=== PATIENT | male | born 1950 | race Caucasian/White ===

== ENCOUNTER 2018-05-24 10:37 | Inpatient (IN) | payer OTHER ==
[~2018-05-24] VITALS: Ht 177.8 cm; Wt 108.9 kg
[2018-05-24 13:04] LABS: ABSOLUTE BASOPHIL COUNT 0 /CUMM (0.0-0.2); ABSOLUTE EOSINOPHIL COUNT 0.4 /CUMM (0.0-0.7); ABSOLUTE GRANULOCYTE CT 10.2 /CUMM (1.4-6.5); ABSOLUTE LYMPH COUNT 1.3 /CUMM (1.2-3.4); BASOPHIL % 0.3 % (0.0-2.0); GRANULOCYTE % 79.1 % (42.2-75.2); HEMATOCRIT 40.5 % (42-52); MEAN CORPUSCULAR HGB 29.4 PG (27.0-31.0); MEAN CORPUSCULAR HGB CONC 33.9 G/DL (33.0-37.0); MEAN CORPUSCULAR VOLUME 86.7 FL (80.0-94.0); PLATELET COUNT 331 /CUMM (130-400); RED BLOOD CELL CT 4.68 /CUMM (4.70-6.10); WHITE BLOOD CELL COUNT 12.9 /CUMM (4.8-10.8)
--- NOTE | 2018-05-24 15:47 | ED SKIN/ALLERGY COMPLAINT ---
History of Present Illness General Chief Complaint: General Adult Stated Complaint: SIB DR FOR ?LAC TO BACK OF HEAD Source: patient Exam Limitations: no limitations Vital Signs & Intake/Output Vital Signs & Intake/Output Vital Signs Date Time Temp Pulse Resp B/P B/P Pulse O2 O2 Flow FiO2 Mean Ox Delivery Rate 05/24 1540 98.4 84 18 112/70 05/24 1048 98.6 74 18 137/74 98 Room Air Allergies Coded Allergies: levofloxacin (Severe, RASH 05/24/18) ciprofloxacin (From CIPRO HC) (HIVES, RASH 05/24/18) hydrocortisone (From CIPRO HC) (HIVES, RASH 05/24/18) Reconcile Medications Amlodipine Besylate 10 MG TABLET 1 TAB PO QAM BP (Reported) Cholecalciferol (Vitamin D3) (Vitamin D) 2,000 UNIT CAPSULE 1 CAP PO QAM DM ( Reported) Erythromycin Ethylsuccinate (E.e.s. 400) 400 MG TABLET 1 TAB PO EOD ABX ( Reported) Fenofibrate Nanocrystallized (Fenofibrate) 145 MG TABLET 1 TAB PO QHS CHOLESTEROL/TRIGLYCERIDES (Reported) [FOLNATE PLUS] 1 TAB PO QAM SUPPLEMENT (Reported) Furosemide (Lasix) 20 MG TABLET 1 TAB PO QAM DIURETIC (Reported) Gabapentin 300 MG CAPSULE 1 CAP PO TID UNKNOWN (Reported) Lactobacillus Acidophilus (Probiotic) (Unknown Strength) CAPSULE (Unknown Dose ) PO DAILY PROBIOTIC (Reported) Lansoprazole 30 MG CAPSULE.DR 1 CAP PO QAM GI (Reported) Levothyroxine Sodium 150 MCG TABLET 1 TAB PO DAILY AC THYROID (Reported) Linagliptin (Tradjenta) 5 MG TABLET 1 TAB PO QHS DM (Reported) Lisinopril 40 MG TABLET 1 TAB PO DAILY BP (Reported) Loratadine (Claritin) 10 MG TABLET 1 TAB PO QAM ALLERGIES (Reported) Metformin HCl (Metformin HCl ER) 500 MG TAB.ER.24 1 TAB PO QAM DM (Reported) Metformin HCl (Metformin HCl ER) 500 MG TAB.ER.24H 2 TAB PO QPM DM (Reported) [place]-3S/Dha/Epa/Fish Oil (Fish Oil 1,200 MG Softgel) 360-1,200MG CAPSULE 2 CAP PO QPM SUPPLEMENT (Reported) Paroxetine HCl (Paxil) 30 MG TABLET 1 TAB PO QHS MENTAL HEALTH (Reported) Pravastatin Sodium 40 MG TABLET 1 TAB PO QPM CHOLESTEROL (Reported) Rivaroxaban (Xarelto) 10 MG TABLET 1 TAB PO QPM BLOOD THINNER (Reported) Sulfamethoxazole/Trimethoprim (Bactrim Ds Tablet) 800 MG-160 MG TABLET 1 TAB PO BID ABX (Reported) Triage Note: 68 YO MALE TO TRIAGE FOR EVAL OF ?INFECTION TO BACK OF HEAD. STARTED WITH LUMP ON HIS HEAD ON May, WAS SEEN AT [facility] AND OUT ON AMOXICILLAN, PER IT DIDNT GET ANY BETTER, SAW PCP ON SUNDAY AND PERSCRIBED BACTRIM AND IS CURRENTLY TAKING IT NOW. NOTED WITH OOZING TO SITE ON BACK OF NECK WITH LARGE LUMP NOTED. Triage Nurses Notes Reviewed? yes Onset: Abrupt Duration: week(s): Timing: recent history Severity: moderate, severe Location: scalp HPI: 60-year-old male comes into the emergency room with swelling and pain to his scalp. Its been there for weeks getting progressively worse. Denies any fever chills vomiting. Some drainage. Comes in for further evaluation Past History Travel History Traveled to [place] past 21 day No Medical History Any Pertinent Medical History? see below for history Neurological: CVA Cardiovascular: AFIB, hypertension, hyperlipidemia, BRADACARDIA Musculoskeletal: TANIA IN HIS NECK Endocrine: diabetes, AML Blood Disorders: BLOOD CLOTS IN LEGS Surgical History Surgical History: non-contributory Psychosocial History What is your primary language Maltese Tobacco Use: Never used Family History Hx Contributory? No Review of Systems Review of Systems Constitutional: Reports: no symptoms. EENTM: Reports: no symptoms. Respiratory: Reports: no symptoms. Cardiovascular: Reports: no symptoms. GI: Reports: no symptoms. Genitourinary: Reports: no symptoms. Musculoskeletal: Reports: no symptoms. Skin: Reports: see HPI. Neurological/Psychological: Reports: no symptoms. Hematologic/Endocrine: Reports: no symptoms. Immunologic/Allergic: Reports: no symptoms. All Other Systems: Reviewed and Negative Physical Exam Physical Exam General Appearance: no apparent distress, alert, mild distress Head: swelling and induration to posterior scalp, multiple open wounds with purulent drainage, erythema, warmth, Eyes: Bilateral: normal appearance. Ears, Nose, Throat: normal ENT inspection, hearing grossly normal Neck: normal inspection Respiratory: no respiratory distress Gastrointestinal: non-tender Back: normal inspection Extremities: normal inspection, normal range of motion, no edema Neurologic/Psych: awake, alert, oriented x 3, normal mood/affect Skin: see above Progress Differential Diagnosis: abscess/cellulitis, allergic reaction, sepsis Plan of Care: Orders Procedure Date/time Status Consistent Carbohydrate 1 05/25 B Active HEAD & NECK CULTURE 05/24 1616 Active CBC WITHOUT DIFFERENTIAL 05/24 1234 Complete BASIC METABOLIC PANEL 05/24 1234 Complete Laboratory Tests 05/24/18 1252: Anion Gap 9, Estimated GFR 50 L, BUN/Creatinine Ratio 17.1, Glucose 153 H, Calcium 9.9, CBC w Diff NO MAN DIFF REQ, RBC 4.68 L, MCV 86.7, MCH 29.4, MCHC 33.9, RDW 15.0 H, MPV 9.0, Gran % 79.1 H, Lymphocytes % 10.0 L, Monocytes % 7.6, Eosinophils % 3.0, Basophils % 0.3, Absolute Granulocytes 10.2 H, Absolute Lymphocytes 1.3, Absolute Monocytes 1.0 H, Absolute Eosinophils 0.4, Absolute Basophils 0 Microbiology 05/24 1640 HEAD/NECK: Head/Neck Culture - RECD 05/24 1640 HEAD/NECK: Gram Stain - RECD Departure Departure Disposition: HOME OR SELF CARE Condition: Stable Clinical Impression Primary Impression: Abscess or cellulitis of scalp Referrals: Dallas Bishop MD (PCP/Family) Departure Forms: Customer Survey General Discharge Information Admission Note Spoke With: George Gramajo MD Documentation of Exam: Documentation of any treatments & extenuating circumstances including Concerns Regarding Discharge (functional status, medication knowledge or non-compliance, living conditions, etc.) that warrant an admission rather than observation: Wound care. IV antibiotics. Surgery consultation. Diabetic. Medically not safe for discharge.
--- NOTE | 2018-05-24 17:12 | PN- Student ---
Subjective Subjective: Consult note Pre-op Diagnosis: complicated scalp abscess Planned procedure and time: incision and drainage, 05/24/18 CXR: not indicated EKG: not indicated Blood: not indicated Orders: admit patient to floor; IV vancomycin 500 mL (2.2g) initial (trough 15- 20 ug/mL); IV NS 100mL/hr Anesthesia: local, ASA 2 Consent: signed and on chart
--- NOTE | 2018-05-24 17:23 | PN- Student ---
Daphne Farley 05/24/18 1717: Subjective Subjective: Brief op note: Pre-op diagnosis: complicated scalp abscess with drainage Post-op diagnosis: complicated scalp abscess with drainage Procedure: incision and drainage Surgeon: Hang Floyd MD Assistants: Daphne Farley, Student Findings: Fragile, indurated skin overlying pockets of pus in a complicated abscess. Anesthesia: local Fluids: none EBL: 30 mL Urine output: none Drains: none Specimens: pus sent for culture Complications: pain from incision Condition: stable, admitted to floor
[2018-05-24] MEDS ORDERED: BACTRIM DS TAB1 EACH PO (17:49)
[2018-05-24] MEDS ORDERED: PROBIOTIC1 EACH PO (17:50)
[2018-05-24] MEDS ORDERED: E.E.S. 400400 MG PO (18:08)
[2018-05-24] MEDS ORDERED: FISH OIL 1,2001 EAC2 PO (18:10)
[2018-05-24] MEDS ORDERED: GABAPENTIN300 M2 PO (18:11)
[2018-05-24] MEDS ORDERED: CLARITIN10 M1 PO (18:11)
[2018-05-24] MEDS ORDERED: LISINOPRIL40 M1 PO (18:12)
[2018-05-24] MEDS ORDERED: FENOFIBRATE145 M1 PO (18:12)
[2018-05-24] MEDS ORDERED: LANSOPRAZOLE30 M2 PO (18:13)
[2018-05-24] MEDS ORDERED: XARELTO10 M1 PO (18:13)
[2018-05-24] MEDS ORDERED: LEVOTHYROXINE150 MCG PO (18:13)
[2018-05-24] MEDS ORDERED: PRAVASTATIN SOD40 M2 PO (18:14)
[2018-05-24] MEDS ORDERED: LASIX20 M1 PO (18:14)
[2018-05-24] MEDS ORDERED: AMLODIPINE BESY10 M1 PO (18:15)
[2018-05-24] MEDS ORDERED: PAXIL30 M1 PO (18:16)
[2018-05-24] MEDS ORDERED: [UNRECOGNIZED DRUG - OTHER] PO (18:16)
[2018-05-24] MEDS ORDERED: METFORMIN HCL500 M2 PO (18:17)
[2018-05-24] MEDS ORDERED: VITAMIN D2000 UNIT PO (18:17)
[2018-05-24] MEDS ORDERED: METFORMIN HCL500 M4 PO (18:17)
[2018-05-24] MEDS ORDERED: TRADJENTA5 M1 PO (18:17)
--- NOTE | 2018-05-24 19:18 | History & Physical ---
Andrea Kumari 05/24/181916: General Information and HPI History of Present Illness: 60-year-old M with past medical history HTN, HLD, type 2 diabetes on oral hypoglycemic, sleep apnea, AML , A. fib on Xarelto and CVA presented with with scalp abscess on posterior side of the head for the last 2 weeks. According to the patient started itching and pain in posterior side of head. he had a haircut 2 days before pain in the posterior scalp . Then the patient noticed abcess. She took him to the urgent care facility where he was recommended amoxicillin for 7 days but abscess were persistent. Than he started taking Bactrim for the last 2 days on recommendation of PCP but the patient saw no improvement . Patient referred to emergency department today abscess incision and drainage done. Review of system is negative for fever, chills, chest pain, abdominal pain, diarrhea, constipation, burning micturition, weight loss. Past History Travel History Traveled to [place] past 21 day No Medical History Neurological: CVA Cardiovascular: AFIB, hypertension, hyperlipidemia, BRADACARDIA Musculoskeletal: TANIA IN HIS NECK Endocrine: diabetes, AML Blood Disorders: BLOOD CLOTS IN LEGS Surgical History Surgical History: non-contributory Review of Systems Review of Systems Constitutional: Reports: see HPI. Exam & Diagnostic Data Last 24 Hrs of Vital Signs/I&O Vital Signs Date Time Temp Pulse Resp B/P B/P Pulse O2 O2 Flow FiO2 Mean Ox Delivery Rate 05/24 2205 98.1 73 20 124/68 96 05/24 2105 98.6 88 16 120/78 97 Room Air 05/24 1540 98.4 84 18 112/70 05/24 1048 98.6 74 18 137/74 98 Room Air Intake & Output 05/25 0800 05/25 0000 05/24 1600 Intake Total 100 0 Output Total Balance 100 0 Intake, IV 100 Intake, Oral 0 Number 1 Bowel Movements Patient 240 lb 245 lb Weight Weight Reported by Patient Reported by Patient Measurement Method Physical Exam HEENT Abcess with discharge on posterior side of head. Lymphatic Axillary nl, Cervical nl Cardiovascular Normal S1, Normal S2, Murmur, irregular pulse Lungs Clear to Auscultation, Normal Air Movement Abdomen Normal Bowel Sounds, Soft, No Tenderness Extremities No Clubbing, No Cyanosis, Normal Pulses, Bilateral pedal edema Assessment/Plan Assessment: 60-year-old M with past medical history HTN, HLD, type 2 diabetes on oral hypoglycemic, sleep apnea, AML , A. fib on Xarelto and CVA presented with with scalp abscess on posterior side of the head for the last 2 weeks. At the time of presentation to emergency department vitals and labs are given below. Vitals: Temperature 98.4, pulse rate 84, respiratory rate 18, blood pressure 112/70, oxygen saturation 97% Labs: Patient pertinent labs WBC 12.9, hemoglobin/hematocrit 13.8/40.5, MCV 86.7, platelet 331 Granulocyte 79.1 Sodium 139, potassium 4.5, anion gap 9, bun 24, creatinine 1.4, estimated GFR 50 Urinalysis: Urine pH 5.5, urine leukocyte esterase negative, urine WBC rare, urine RBC 3.5 INR is 2.01 Problems list: * Scalp abcess * Past medical history CVA, hypertension, hyperlipidemia, A. fib, AML, sleep apnea * Plan: Scalp abscess: Patient having leukocytosis and low grade temperature and redness, changed skill coulour and discharge on posterior side of head, all above finding are pertininent with sking abcess. Basic reason for admission is failed out patient antibiotic theraphy. * Admit to general medical floor * Incision and drainage done at emergency department * Will start IV antibiotic vancomycin * Will monitor his blood sugar * Start him on regular insulin * Will follow up on blood culture and abscess drain culture * Change dressing daily * ID recommendation at a.m. if needed * Workup for diabetic control *Medicine will be continued for his other medical condition *Full code *GI DVT prophylaxis As Ranked By This Provider Problem List: 1. Abscess or cellulitis of scalp Core Measures/Misc (05/27) Acute Coronary Syndrome ACS Diagnosis: No Congestive Heart Failure Congestive Heart Failure Diagnosis No Cerebrovascular Accident CVA/TIA Diagnosis: No VTE (View Protocol) VTE Risk Factors Age>40 No Mechanical VTE Prophylaxis d/t Other No VTE Pharm Prophylaxis d/t Other Sepsis (View protocol) If YES complete Sepsis Event Note If YES complete Sepsis Event Note Jaspal TUBBS,Sonja 05/25/18 0248: Core Measures/Misc (05/27) Sepsis (View protocol) Sepsis Present: No If YES complete Sepsis Event Note If YES complete Sepsis Event Note Resident Review Statement Resident Statement: examined this patient, discussed with integrated marketing intern, agreed with integrated marketing intern, discussed with family, reviewed EMR data (avail), discussed with nursing , discussed with case mgmt, reviewed images, amended to note Other Findings: Patient is a 68 yo M with a history of HTN, HLD, NIDDM, sleep apnea, AML, thyroid cancer s/p resection and CVA presents with a posterior scalp abscess for 11 days. The patients noticed the abscess on May 13 and they went to an urgent care where he received amoxicillin x 7 days. When the patient presented for his primary care visit on May 22 the abscess was not improved and the PCP prescribed Bactrim. When the patients noticed the wound becoming purulent she brought him to [facility] ED. The above history is from medical student by his . By the time of my interview patient was alone and not able to given any meaningful history. ED Course Evaluated by surgery and underwent Incision and drainage of the pus. Vitals stable - afebrile, HR 70's, BP 120/70mmHg. Labs did show white count of 12.9, Cr 1.4, BUN 24. Etiology Patient might sustained community-acquired MRSA cellulitis from the haircut, he failed outpatient amoxicillin more suggestive of MRSA. Being diabetic he is prone to have severe infection. He merits IV antibiotics for 1/2 days followed by discharging on Bactrim. Plan Admit to general medicine floor Scalp abscess status post incision and drainage H/o spinal staph infection C5-C5 2004. A hardware placed in 2005 (Titanium tania). * Follow-up culture/Gram stain of pus * Continue IV vancomycin * Likely transition to Bactrim at discharge * Surgery on board - please follow-up recommendations * Pain management - oral/IV Tylenol * If spikes fever/signs of decompensation - constant blood cultures as there is chance of infecting hardware inside. History of hypertension: Continue lisinopril 40 mg History of hyperlipidemia:Continue pravastatin 40 mg, fenofibrate 145 mg daily Lower extremity edema: Continue furosemide 20 g daily Diabetic neuropathy: Continue gabapentin 300 mg 3 times a day NIDDM: Hold oral hypoglycemics, Accu-Cheks and insulin sliding scale, Monitor blood sugars and adjust accordingly. She was on metformin 500 mg a.m., 1000 mg p.m. and Linagliptin 5 mg daily. History of thyroid cancer status post arterectomy: Continue levothyroxine 50 g daily Unclear the reason behind erythromycin 400 mg every other day, needs to conform. DVT prophylaxis SC heparin code status Full code Rox TUBBS,George 05/25/18 0359: General Information and HPI MD Statement: I have seen and personally examined MEIR BELLE and documented this H&P. The patient is a 68 year old M who presented with a patient stated chief complaint of [abscess]. Source of Information: patient, family Exam Limitations: no limitations Allergies/Medications Allergies: Coded Allergies: levofloxacin (Severe, RASH 05/24/18) ciprofloxacin (From CIPRO HC) (HIVES, RASH 05/24/18) hydrocortisone (From CIPRO HC) (HIVES, RASH 05/24/18) Home Med list Acetaminophen 500 MG TABLET 2 TAB PO PRN PAIN (Reported) Amlodipine Besylate 10 MG TABLET 1 TAB PO QAM BP (Reported) Cholecalciferol (Vitamin D3) (Vitamin D) 2,000 UNIT CAPSULE 1 CAP PO QAM DM ( Reported) Erythromycin Ethylsuccinate (E.e.s. 400) 400 MG TABLET 1 TAB PO EOD ABX ( Reported) Fenofibrate Nanocrystallized (Fenofibrate) 145 MG TABLET 1 TAB PO QHS CHOLESTEROL/TRIGLYCERIDES (Reported) [FOLNATE PLUS] 1 TAB PO QAM SUPPLEMENT (Reported) Furosemide (Lasix) 20 MG TABLET 1 TAB PO QAM DIURETIC (Reported) Gabapentin 300 MG CAPSULE 1 CAP PO TID UNKNOWN (Reported) Lactobacillus Acidophilus (Probiotic) (Unknown Strength) CAPSULE (Unknown Dose ) PO DAILY PROBIOTIC (Reported) Lansoprazole 30 MG CAPSULE.DR 1 CAP PO QAM GI (Reported) Levothyroxine Sodium 150 MCG TABLET 1 TAB PO DAILY AC THYROID (Reported) Linagliptin (Tradjenta) 5 MG TABLET 1 TAB PO QHS DM (Reported) Lisinopril 40 MG TABLET 1 TAB PO DAILY BP (Reported) Loratadine (Claritin) 10 MG TABLET 1 TAB PO QAM ALLERGIES (Reported) Metformin HCl (Metformin HCl ER) 500 MG TAB.ER.24 1 TAB PO QAM DM (Reported) Metformin HCl (Metformin HCl ER) 500 MG TAB.ER.24H 2 TAB PO QPM DM (Reported) [place]-3S/Dha/Epa/Fish Oil (Fish Oil 1,200 MG Softgel) 360-1,200MG CAPSULE 2 CAP PO QPM SUPPLEMENT (Reported) Paroxetine HCl (Paxil) 30 MG TABLET 1 TAB PO QHS MENTAL HEALTH (Reported) Pravastatin Sodium 40 MG TABLET 1 TAB PO QPM CHOLESTEROL (Reported) Rivaroxaban (Xarelto) 10 MG TABLET 1 TAB PO QPM BLOOD THINNER (Reported) Past History Medical History Neurological: CVA Cardiovascular: AFIB, hypertension, hyperlipidemia Musculoskeletal: TANIA IN HIS NECK Review of Systems Review of Systems Constitutional: Reports: see HPI. Exam & Diagnostic Data Last 24 Hrs of Vital Signs/I&O Vital Signs Date Time Temp Pulse Resp B/P B/P Pulse O2 O2 Flow FiO2 Mean Ox Delivery Rate 05/24 2205 98.1 73 20 124/68 96 05/24 2105 98.6 88 16 120/78 97 Room Air 05/24 1540 98.4 84 18 112/70 05/24 1048 98.6 74 18 137/74 98 Room Air Intake & Output 05/25 0800 05/25 0000 05/24 1600 Intake Total 100 0 Output Total Balance 100 0 Intake, IV 100 Intake, Oral 0 Number 1 Bowel Movements Patient 240 lb 245 lb Weight Weight Reported by Patient Reported by Patient Measurement Method Physical Exam General Appearance Alert, Oriented X3, Cooperative, No Acute Distress Skin No Rashes, No Breakdown Skin Temp/Moisture Exam: Warm/Dry Sepsis Skin Exam (color): Normal for Ethnicity HEENT Atraumatic, PERRLA, EOMI Neck Supple, No JVD Lymphatic Axillary nl, Cervical nl Cardiovascular Normal S1, Normal S2, Murmur, irregular pulse Lungs Clear to Auscultation, Normal Air Movement Abdomen Normal Bowel Sounds, Soft, No Tenderness Last 24 Hrs of Labs/Virgilio: Laboratory Tests 05/24/18 1252: Anion Gap 9, Estimated GFR 50 L, BUN/Creatinine Ratio 17.1, Glucose 153 H, Calcium 9.9, CBC w Diff NO MAN DIFF REQ, RBC 4.68 L, MCV 86.7, MCH 29.4, MCHC 33.9, RDW 15.0 H, MPV 9.0, Gran % 79.1 H, Lymphocytes % 10.0 L, Monocytes % 7.6, Eosinophils % 3.0, Basophils % 0.3, Absolute Granulocytes 10.2 H, Absolute Lymphocytes 1.3, Absolute Monocytes 1.0 H, Absolute Eosinophils 0.4, Absolute Basophils 0 Microbiology 05/24 1640 HEAD/NECK: Head/Neck Culture - RECD 05/24 1640 HEAD/NECK: Gram Stain - RECD Core Measures/Misc (05/27) Sepsis (View protocol) If YES complete Sepsis Event Note If YES complete Sepsis Event Note Attending MD Review Statement Attending Statement Attending MD Statement: examined this patient, discuss w/resident/PA/BRIDGE SAW OPERATOR, agreed w/resident/PA/BRIDGE SAW OPERATOR, discussed with family, reviewed EMR data (avail), discussed with nursing, discussed with case mgmt, reviewed images, amended to note Attending Assessment/Plan: This patient is a 68-year-old male with a significant past medical history for HTN, HLD, non-insulin type 2 diabetes, sleep apnea, AML, and CVA presents with a posterior scalp abscess for 11 days. The patients noticed the abscess on May 13 and they went to an urgent care where he received amoxicillin x 7 days. When the patient presented for his primary care visit on May 22 the abscess was not improved and the PCP prescribed Bactrim. When the patients noticed the wound becoming purulent she brought him to [facility] ED. The patient states he had been having trouble sleeping the last couple of night due to the discomfort rating it an 8/10. He received a haircut at his [employer] on May 11, two days before the abscess was noticed. While in the emergency department to general surgeon was consulted and performed a I&D. The patients pain and discomfort improved considerably. He is afebrile and his vital signs are stable, he is a mildly elevated white blood cell count 12.9, his BUN and creatinine are mildly elevated, cultures sent and pending and no imaging. The patient will be admitted to the hospital for abscess with failed outpatient therapy will continue IV antibiotics (vancomycin) and further surgical debridement as needed. Full code.
--- NOTE | 2018-05-24 19:38 | Cons- General Surgery ---
General Information and HPI Consulting Request Date of Consult: 05/24/18 Requested By: George Gramajo MD History of Present Illness: PATIENT HAS ONE WEEK OF WORSENING SWELLING AND TENDERNESS POSTERIOR SCALP. NO F/ C/S. NO PRIOR EPISODES. IRRITATED FROM LAYING ON BACK. PATITNE TAKES CPAP AND CONCERN FRICTION MAY BE RELATED TO ONSET Allergies/Medications Allergies: Coded Allergies: levofloxacin (Severe, RASH 05/24/18) ciprofloxacin (From [facility]) (HIVES, RASH 05/24/18) hydrocortisone (From [facility]) (HIVES, RASH 05/24/18) Home Med List: Acetaminophen 500 MG TABLET 2 TAB PO PRN PAIN (Reported) Amlodipine Besylate 10 MG TABLET 1 TAB PO QAM BP (Reported) Cholecalciferol (Vitamin D3) (Vitamin D) 2,000 UNIT CAPSULE 1 CAP PO QAM DM ( Reported) Erythromycin Ethylsuccinate (E.e.s. 400) 400 MG TABLET 1 TAB PO EOD ABX ( Reported) Fenofibrate Nanocrystallized (Fenofibrate) 145 MG TABLET 1 TAB PO QHS CHOLESTEROL/TRIGLYCERIDES (Reported) [FOLNATE PLUS] 1 TAB PO QAM SUPPLEMENT (Reported) Furosemide (Lasix) 20 MG TABLET 1 TAB PO QAM DIURETIC (Reported) Gabapentin 300 MG CAPSULE 1 CAP PO TID UNKNOWN (Reported) Lactobacillus Acidophilus (Probiotic) (Unknown Strength) CAPSULE (Unknown Dose ) PO DAILY PROBIOTIC (Reported) Lansoprazole 30 MG CAPSULE.DR 1 CAP PO QAM GI (Reported) Levothyroxine Sodium 150 MCG TABLET 1 TAB PO DAILY AC THYROID (Reported) Linagliptin (Tradjenta) 5 MG TABLET 1 TAB PO QHS DM (Reported) Lisinopril 40 MG TABLET 1 TAB PO DAILY BP (Reported) Loratadine (Claritin) 10 MG TABLET 1 TAB PO QAM ALLERGIES (Reported) Metformin HCl (Metformin HCl ER) 500 MG TAB.ER.24 1 TAB PO QAM DM (Reported) Metformin HCl (Metformin HCl ER) 500 MG TAB.ER.24H 2 TAB PO QPM DM (Reported) [place]-3S/Dha/Epa/Fish Oil (Fish Oil 1,200 MG Softgel) 360-1,200MG CAPSULE 2 CAP PO QPM SUPPLEMENT (Reported) Paroxetine HCl (Paxil) 30 MG TABLET 1 TAB PO QHS MENTAL HEALTH (Reported) Pravastatin Sodium 40 MG TABLET 1 TAB PO QPM CHOLESTEROL (Reported) Rivaroxaban (Xarelto) 10 MG TABLET 1 TAB PO QPM BLOOD THINNER (Reported) Current Medications: Current Medications Sig/Stephanie Start time Last Medication Dose Route Stop Time Status Admin Acetaminophen 1,000 MG Q6P PRN 05/24 1930 AC IV Acetaminophen 650 MG Q6P PRN 05/24 1915 AC PO Cholecalciferol 2,000 IU DAILY 05/25 0900 AC 05/25 PO 0908 Erythromycin 500 MG Q48 05/25 0900 AC 05/25 PO 05/26 0859 0908 Fenofibrate 145 MG AT BEDTIME 05/24 2215 AC 05/24 PO 2340 Furosemide 20 MG QAM 05/25 0900 AC 05/25 PO 0908 Gabapentin 300 MG TID 05/24 2216 AC 05/25 PO 0909 Insulin Aspart 0 TIDAC 05/25 0800 AC 05/25 SC 0907 Insulin Detemir 6 UNITS BID 05/25 0900 AC 05/25 SC 0910 Lactobacillus 1 CAP DAILY 05/25 0900 AC 05/25 Acidophilus PO 0909 Levothyroxine Sodium 0.15 MG DAILY AC 05/25 0700 AC 05/25 PO 0515 Lidocaine 0 .STK-MED ONE 05/24 1604 DC .ROUTE Lidocaine/Epinephrine 0 .STK-MED ONE 05/24 1604 DC .ROUTE Lisinopril 40 MG DAILY 05/25 0900 AC 05/25 PO 0909 Loratadine 10 MG QAM 05/25 0900 AC 05/25 PO 0908 Omeprazole 40 MG DAILY AC 05/25 0700 AC 05/25 PO 0515 Oxycodone/ 1 TAB ONCE ONE 05/24 1730 DC 05/24 Acetaminophen PO 05/24 1731 1728 Oxycodone/ 0 .STK-MED ONE 05/24 1725 DC Acetaminophen PO Paroxetine HCl 30 MG AT BEDTIME 05/25 2100 AC PO Pravastatin Sodium 40 MG 1700 05/25 1700 AC PO Rivaroxaban 10 MG QPM 05/25 2100 AC PO Sodium Chloride 1,000 ML Q13H 05/24 1930 DC 05/24 IV 05/25 0829 2138 Vancomycin HCl 1,000 MG DAILY 05/25 0900 AC 05/25 Sodium Chloride 250 ML IV 09 Vancomycin HCl 0 .STK-MED ONE 05/24 1645 DC .ROUTE Vancomycin HCl 1,000 MG ONCE ONE 05/24 1630 DC 05/24 Sodium Chloride 250 ML IV 05/24 1729 1710 Past History Medical History Neurological: CVA Cardiovascular: AFIB, hypertension, hyperlipidemia, BRADACARDIA Musculoskeletal: degen joint disease Endocrine: diabetes, AML Blood Disorders: DVT Other Medical Hx: ?MRSA Surgical History Pertinent Surgical History: spinal fusion Review of Systems Review of Systems: NO CP, DYSPNEA. GAIN IMBALANCE. SPEECH IMPEDIMENT FROM STOKE. NO F/C/S. REMAINDER 12 NEG. Exam & Diagnostic Data Vital Signs and I&O Vital Signs Date Time Temp Pulse Resp B/P B/P Pulse O2 O2 Flow FiO2 Mean Ox Delivery Rate 05/24 1540 98.4 84 18 112/70 05/24 1048 98.6 74 18 137/74 98 Room Air Intake & Output 05/24 1600 05/24 0800 05/24 0000 05/23 1600 05/23 0800 05/23 0000 Intake Total 0 Output Total Balance 0 Intake, Oral 0 Patient 245 lb Weight Weight Reported by Patient Measurement Method Physical Exam: GEN; OBESE, NAD. LOOKS AGE. NO DISTRESS \HEENT; ANICTERIC,M PERRL, EOMI HEAD; 10CM ERYTHEMAN AND INDURATION POSTERIOR SCALP. FLUCTUANCE. EXPRESSABLE PURULENCE FROM MULTIPLE SITES. Last 24 Hours of Labs: Laboratory Tests 05/24 1252 Chemistry Sodium (137 - 145 mmol/L) 139 Potassium (3.5 - 5.1 mmol/L) 4.5 Chloride (98 - 107 mmol/L) 102 Carbon Dioxide (22 - 30 mmol/L) 28 Anion Gap (5 - 16) 9 BUN (9 - 20 mg/dL) 24 H Creatinine (0.7 - 1.2 mg/dL) 1.4 H Estimated GFR (>60 ml/min) 50 L BUN/Creatinine Ratio (7 - 25 %) 17.1 Glucose (65 - 99 mg/dL) 153 H Calcium (8.4 - 10.2 mg/dL) 9.9 Hematology CBC w Diff NO MAN DIFF REQ WBC (4.8 - 10.8 /CUMM) 12.9 H RBC (4.70 - 6.10 /CUMM) 4.68 L Hgb (14.0 - 18.0 G/DL) 13.8 L Hct (42 - 52 %) 40.5 L MCV (80.0 - 94.0 FL) 86.7 MCH (27.0 - 31.0 PG) 29.4 MCHC (33.0 - 37.0 G/DL) 33.9 RDW (11.5 - 14.5 %) 15.0 H Plt Count (130 - 400 /CUMM) 331 MPV (7.4 - 10.4 FL) 9.0 Gran % (42.2 - 75.2 %) 79.1 H Lymphocytes % (20.5 - 51.1 %) 10.0 L Monocytes % (1.7 - 9.3 %) 7.6 Eosinophils % (0 - 5 %) 3.0 Basophils % (0.0 - 2.0 %) 0.3 Absolute Granulocytes (1.4 - 6.5 /CUMM) 10.2 H Absolute Lymphocytes (1.2 - 3.4 /CUMM) 1.3 Absolute Monocytes (0.10 - 0.60 /CUMM) 1.0 H Absolute Eosinophils (0.0 - 0.7 /CUMM) 0.4 Absolute Basophils (0.0 - 0.2 /CUMM) 0 Assessment/Plan Assessment/Plan INCOMPLETELY DRAINING ABSCESS OF SCALP. CHARACTERISTICS C/W MRSA (INFILTRATIVE WITHOUT DISCRETE COLLECTION). PLAN FOR DRAINAGE IN ER. CULTURE OBTAINED. Consult Acknowledgment - Thank you for your consult request.
--- NOTE | 2018-05-24 20:15 | PN- Student ---
Subjective Subjective: HPI: A 68 yo M with a history of HTN, HLD, non-insulin type 2 diabetes, sleep apnea, AML, and CVA presents with a posterior scalp abscess for 11 days. The patients noticed the abscess on May 13 and they went to an urgent care where he received amoxicillin x 7 days. When the patient presented for his primary care visit on May 22 the abscess was not improved and the PCP prescribed Bactrim. When the patients noticed the wound becoming purulent she brought him to [facility] ED. The patient states he had been having trouble sleeping the last couple of night due to the discomfort rating it an 8/10. The patient presents in the ED sitting comfortably in his chair accompanied by his eating dinner. He states the pain has improved s/p abscess drainage to a 2/10. He denies any fevers, chills, vomitting or diaphoresis, abdominal pain, change in bowels, rashes or lesions. The patient has a history of a spinal staph infection in C5-6 in 2004. A titanium mark was placed in 2005 over the course of the admittance the patient had a CVA. The patient traveled on a cruise to [facility] in early April. On May 06, he visited his granite cutter for a check-up as a he as a family history of melanoma. He received a haircut at his [employer]iaz shop on May 11, two days before the abscess was noticed. PMH: Hypertension Hyperlipidemia Non-insulin type 2 diabetes, on metformin and tradjenta Neuropathy Sleep apnea, uses CPAP CVA, 2005 AML Thyroid cancer, 1974 PSH: Cervical mark placement: 2005 Thyroid resection: 1974 Family history: Father: , age 50, hx of CAD, STEMI Mother: decesased, age 89, hx of HTN, CAD, breast cancer, melanoma Sister: alive, hx of breast cancer, HTN Brother: alive, hx of HTN Social History: Patient is a retired teacher, lives in [place] with his who is also recently retired. Recently, they have been caring for their 10 month old grandaughter a few days a week. ROS: General: denies fever, diaphoresis, or chills Skin: denies rashes or other lesions HEENT: denies H/A, visual changes, or diplopia Neck: see HPI Pulmonary: denies SOB or cough Cardio: denies chest pain or palpitations Extremities: denies swelling or numbness Abdominal: denies any pain, tenderness or change in bowels Genitourinary: denies any symptoms Objective Objective: Physical Exam: General: patient was pleasant, sitting comfortably in no acute distress Skin: no rashes or lesions on extremities Neck: erythematous, purulent abscess on posterior scalp Respiratory: normal breath sounds, no respiratory distress Cardiovascular: regular rate and rhythm Abdominal: no tenderness or guarding, bowel sounds present throughout Neurologic: alert and oriented, mild speech impairment s/p CVA Results Results: Laboratory Tests 05/24/18 1252: Anion Gap 9, Estimated GFR 50 L, BUN/Creatinine Ratio 17.1, Glucose 153 H, Calcium 9.9, CBC w Diff NO MAN DIFF REQ, RBC 4.68 L, MCV 86.7, MCH 29.4, MCHC 33.9, RDW 15.0 H, MPV 9.0, Gran % 79.1 H, Lymphocytes % 10.0 L, Monocytes % 7.6, Eosinophils % 3.0, Basophils % 0.3, Absolute Granulocytes 10.2 H, Absolute Lymphocytes 1.3, Absolute Monocytes 1.0 H, Absolute Eosinophils 0.4, Absolute Basophils 0 Microbiology 05/24 1640 HEAD/NECK: Head/Neck Culture - RECD 05/24 1640 HEAD/NECK: Gram Stain - RECD Assessment/Plan Assessment: A 68 yo M with a history of HTN, HLD, non-insulin type 2 diabetes, sleep apnea, AML, and CVA presents to the ED with a purulent posterior scalp abscess for 11 days. The abscess did not respond to treatments of amoxicillin x7 days or bactrim x2 days. The patient reports having had a haircut two days prior to the appearance of the abscess. Plan: Based on patient history and resistance to previous antibiotics it is suspected the abscess could be a community acquired staph. aureus infection. Patient admitted for IV vancomycin treatment and wound management.
[2018-05-24] MEDS ORDERED: ACETAMINOPHEN500 M4 PO (20:42)
[2018-05-24 22:05] VITALS: BP 124/68
[2018-05-25 06:01] VITALS: BP 120/64
--- NOTE | 2018-05-25 06:38 | PN- Housestaff ---
Andrea Kumari 05/25/18 0637: Subjective Follow-up For: Scalp abcess with failed outside antibiotic theraphy Subjective: Patient seen and examined at bedside. He was oriented in time place person. He had slurred speech. He denies fever, chills, chest pain, abdominal pain, diarrhea, constipation, burning micturition, focal deficits, headache, pain in neck Review of Systems Constitutional: Reports: see HPI. Objective Last 24 Hrs of Vital Signs/I&O Vital Signs Date Time Temp Pulse Resp B/P B/P Pulse O2 O2 Flow FiO2 Mean Ox Delivery Rate 05/25 0601 98.5 64 20 120/64 95 Room Air 05/24 2205 98.1 73 20 124/68 96 05/24 2105 98.6 88 16 120/78 97 Room Air 05/24 1540 98.4 84 18 112/70 05/24 1048 98.6 74 18 137/74 98 Room Air Intake & Output 05/25 1600 05/25 0800 05/25 0000 Intake Total 1080 100 Output Total Balance 1080 100 Intake, IV 600 100 Intake, Oral 480 Number 1 Bowel Movements Patient 240 lb Weight Weight Reported by Patient Measurement Method Physical Exam General Appearance: Alert, Oriented X3, Cooperative, No Acute Distress Skin: Abcess with discharge atatus post incison and drainage on posterior side of head. Cardiovascular: Normal S1, Normal S2 Lungs: Clear to Auscultation, Normal Air Movement Abdomen: Normal Bowel Sounds, Soft, No Tenderness, No Hepatospenomegaly Neurological: Normal Gait, Normal Speech, Strength at 5/5 X4 Ext Extremities: No Clubbing, No Cyanosis, Bilateral pedal edema Assessment/Plan Assessment: 60-year-old M with past medical history HTN, HLD, type 2 diabetes on oral hypoglycemic, sleep apnea, AML , A. fib on Xarelto and CVA presented with with scalp abscess on posterior side of the head for the last 2 weeks. At the time of presentation to emergency department vitals and labs are given below. Vitals: Temperature 98.4, pulse rate 84, respiratory rate 18, blood pressure 112/70, oxygen saturation 97% Labs: Patient pertinent labs WBC 12.9, hemoglobin/hematocrit 13.8/40.5, MCV 86.7, platelet 331 Granulocyte 79.1 Sodium 139, potassium 4.5, anion gap 9, bun 24, creatinine 1.4, estimated GFR 50 Urinalysis: Urine pH 5.5, urine leukocyte esterase negative, urine WBC rare, urine RBC 3.5 INR is 2.01 Problems list: * Scalp abcess * Past medical history CVA, hypertension, hyperlipidemia, A. fib, AML, sleep apnea * Plan: Scalp abscess: Patient having leukocytosis and low grade temperature and redness, changed skill coulour and discharge on posterior side of head, all above finding are pertininent with sking abcess. Basic reason for admission is failed out patient antibiotic theraphy. * Admit to general medical floor * Incision and drainage done at emergency department * Will start IV antibiotic vancomycin * Will monitor his blood sugar * Start him on regular insulin * Will follow up on blood culture and abscess drain culture * Change dressing daily * ID recommendation at a.m. if needed * Workup for diabetic control *Medicine will be continued for his other medical condition *Full code *GI DVT prophylaxis Problem List: 1. Abscess or cellulitis of scalp Pain Ratin Pain Location: No pain Pain Goal: Remain pain free Pain Plan: Pain management pathway Tomorrow's Labs & Rationales: No labs Jessica,Hema 05/25/18 1152: Attending MD Review Statement Attending Statement Attending MD Statement: examined this patient, discuss w/resident/PA/CRITICAL CARE CLINICAL NURSE SPECIALIST, agreed w/resident/PA/CRITICAL CARE CLINICAL NURSE SPECIALIST, discussed with family, reviewed EMR data (avail), discussed with nursing, discussed with case mgmt, reviewed images, amended to note Attending Assessment/Plan: 68-year-old male with a significant past medical history for HTN, HLD, non- insulin type 2 diabetes, sleep apnea, AML, and CVA presents with a posterior scalp abscess for 11 days failed outpateint treatment. When the patients noticed the wound becoming purulent she brought him to [facility] ED. The patient admitted to the hospital for abscess with failed outpatient therapy will continue IV antibiotics (vancomycin) and general surgery consulted with s/p debridement of abscess. Wound culture growing staph aureus. Follow wound culture and titrate antibitoics.
--- NOTE | 2018-05-25 12:30 | PN- General Surgery ---
Surgical Brief Attending Note Brief Attending Note: DRESSING CHANGED. PURULENT DRAINAGE. CONTINUE CARES. F/U CULTURE.
[2018-05-25 13:48] VITALS: BP 120/80
[2018-05-25 14:34] LABS: ABSOLUTE BASOPHIL COUNT 0 /CUMM (0.0-0.2); ABSOLUTE EOSINOPHIL COUNT 0.5 /CUMM (0.0-0.7); ABSOLUTE GRANULOCYTE CT 6.9 /CUMM (1.4-6.5); ABSOLUTE LYMPH COUNT 1.5 /CUMM (1.2-3.4); ABSOLUTE MONOCYTE COUNT 0.7 /CUMM (0.10-0.60); BASOPHIL % 0.2 % (0.0-2.0); EOSINOPHIL % 5.1 % (0-5); GRANULOCYTE % 71.9 % (42.2-75.2); MEAN CORPUSCULAR HGB 28.8 PG (27.0-31.0); MEAN CORPUSCULAR VOLUME 87.4 FL (80.0-94.0); MEAN PLATELET VOLUME 9.3 FL (7.4-10.4); PLATELET COUNT 358 /CUMM (130-400); RBC DISTRIBUTION WIDTH 14.9 % (11.5-14.5); RED BLOOD CELL CT 4.58 /CUMM (4.70-6.10); WHITE BLOOD CELL COUNT 9.6 /CUMM (4.8-10.8)
[2018-05-25 22:18] VITALS: BP 114/70
[2018-05-26 06:20] VITALS: BP 106/70
--- NOTE | 2018-05-26 08:36 | PN- Housestaff ---
See Addendum Subjective Follow-up For: Scalp abscess Subjective: Patient was seen and examined at bedside. He has laboured speech. He states pain in his scalp is much better. The patient denies fever, chill, nausea, vomiting. Review of Systems Constitutional: Reports: see HPI. Objective Last 24 Hrs of Vital Signs/I&O Vital Signs Date Time Temp Pulse Resp B/P B/P Pulse O2 O2 Flow FiO2 Mean Ox Delivery Rate 05/26 0841 73 106/70 05/26 0620 98.4 73 18 106/70 94 Room Air 05/25 2218 98.7 66 20 114/70 95 15 1348 99.5 69 20 120/80 95 Room Air Intake & Output 05/26 1600 05/26 0800 05/26 0000 Intake Total 250 250 Output Total Balance 250 250 Intake, IV 10 10 Intake, Oral 240 240 Physical Exam General Appearance: Alert, Oriented X3, Cooperative, No Acute Distress HEENT: scalp abscess, coverered in dry dressing Cardiovascular: Regular Rate, Normal S1, Normal S2 Lungs: Clear to Auscultation Abdomen: Normal Bowel Sounds, Soft, No Tenderness Neurological: Normal Gait, laboured speech Vascular: Pulses Symmetrical Assessment/Plan Assessment: 60-year-old M with past medical history HTN, HLD, type 2 diabetes on oral hypoglycemic, sleep apnea, AML , A. fib on Xarelto and CVA presented with with scalp abscess on posterior side of the head for the last 2 weeks. The patient is afebrile. WB: 8.3 Problem history 1. Posterior scalp abscess 2. History of hypertension, hyperlipidemia, Type 2 DM, 1. Posterior scalp abscess -The patient is afberile -WBC normal -We would continue the patient on Vancomycin -Cultures growing Staph aureus, will follow up on sensitivity -Patient is s/p I & D in the ED. Dressing was changed yesterday, wound still has purulent drainage 2. Diabetes Mellitus -ISS -Accu checks 3. Continue home medications for hypertension, hyperlipidemia and hypothyroidism Code status: Full code DVT prohpylaxis Problem List: 1. Abscess or cellulitis of scalp Pain Ratin Pain Location: scalp Pain Goal: Remain pain free Pain Plan: pathway Tomorrow's Labs & Rationales: cbc with bep
[2018-05-26 09:33] LABS: ABSOLUTE BASOPHIL COUNT 0 /CUMM (0.0-0.2); ABSOLUTE EOSINOPHIL COUNT 0.4 /CUMM (0.0-0.7); ABSOLUTE GRANULOCYTE CT 5.4 /CUMM (1.4-6.5); ABSOLUTE LYMPH COUNT 1.8 /CUMM (1.2-3.4); ABSOLUTE MONOCYTE COUNT 0.7 /CUMM (0.10-0.60); BASOPHIL % 0.4 % (0.0-2.0); EOSINOPHIL % 4.7 % (0-5); GRANULOCYTE % 64.5 % (42.2-75.2); MEAN CORPUSCULAR HGB 29.1 PG (27.0-31.0); MEAN CORPUSCULAR HGB CONC 32.8 G/DL (33.0-37.0); MEAN CORPUSCULAR VOLUME 88.7 FL (80.0-94.0); MEAN PLATELET VOLUME 9.4 FL (7.4-10.4); PLATELET COUNT 327 /CUMM (130-400); RBC DISTRIBUTION WIDTH 14.8 % (11.5-14.5); WHITE BLOOD CELL COUNT 8.3 /CUMM (4.8-10.8)
[2018-05-26 13:59] VITALS: BP 150/90
[2018-05-26 23:11] VITALS: BP 123/74
[2018-05-27 06:24] VITALS: BP 110/74
--- NOTE | 2018-05-27 07:02 | PN- Housestaff ---
Andrea Kumari 05/27/18 0702: Subjective Follow-up For: Scalp abscess Subjective: Patient seen and examined at bedside. He is feeling good and ready for discharge today. He denies fever, chill, chest pain, abdominal pain, diarrhea, constipation, no micturition Review of Systems Constitutional: Reports: see HPI. Objective Last 24 Hrs of Vital Signs/I&O Vital Signs Date Time Temp Pulse Resp B/P B/P Pulse O2 O2 Flow FiO2 Mean Ox Delivery Rate 05/27 0920 54 110/74 05/27 0624 97.7 54 20 110/74 94 Room Air 05/26 2311 97.9 53 20 123/74 95 Room Air 05/26 1359 99.0 64 18 150/90 97 Room Air Intake & Output 05/27 1600 05/27 0800 05/27 0000 Intake Total 130 300 Output Total Balance 130 300 Intake, IV 10 Intake, Oral 120 300 Physical Exam General Appearance: Alert, Oriented X3, Cooperative, No Acute Distress Cardiovascular: Normal S1, Normal S2, Murmur Lungs: Clear to Auscultation, Normal Air Movement Abdomen: Normal Bowel Sounds, Soft, No Tenderness, No Hepatospenomegaly, No Masses Neurological: Normal Gait, Strength at 5/5 X4 Ext, Sensation Intact, Cranial Nerves 3-12 NL, Slurred speech Extremities: No Clubbing, No Cyanosis, Normal Pulses, No Tenderness/Swelling, Bilateral pedal edema Assessment/Plan Assessment: 60-year-old M with past medical history HTN, HLD, type 2 diabetes on oral hypoglycemic, sleep apnea, AML , A. fib on Xarelto and CVA presented with with scalp abscess on posterior side of the head for the last 2 weeks. At the time of presentation emergency department patient labs and vitals are given below. Vitals: Temperature 97.9, pulse rate 53, respiratory 20, blood pressure 123/74, pulse oximetry 95%, Labs: CVC 12.9, hemoglobin/hematocrit 13.8/40.5, platelet count 331 Sodium 139, potassium 4.5, anion gap 9, bun 24, creatinine 1.4, estimated GFR 50 Problems list: 1. Posterior scalp abscess 2. History of hypertension, hyperlipidemia, Type 2 DM, hypothyroid Posterior scalp abscess: * We started him on IV vancomycin * WBC trended down * Patient will be discharged home today on Bactrim * Discussed with general surgery * Daily dry dressing and will follow general surgery in 2 weeks * Culture grew strep aureus which is sensitive to vancomycin and Bactrim * WBC trended down patient is afebrile will discharge home today 2. Diabetes Mellitus: * He was on insulin and blood sugar was controlled * Will follow his home medication is recommended * trent kennedy 3. Continue home medications for hypertension, hyperlipidemia and hypothyroidism Code status: Full code DVT prohpylaxis Problem List: 1. Abscess or cellulitis of scalp Pain Ratin Pain Location: no pain Pain Goal: Remain pain free Pain Plan: pain managment pathway Tomorrow's Labs & Rationales: no labs Discharge Plan Discharge Disposition: home Hema Lopez 05/27/18 1226: Attending MD Review Statement Attending Statement Attending MD Statement: examined this patient, discuss w/resident/PA/LACE PINNER, agreed w/resident/PA/LACE PINNER, discussed with family, reviewed EMR data (avail), discussed with nursing, discussed with case mgmt, reviewed images, amended to note Attending Assessment/Plan: Transition IV antibiotics (vancomycin) to PO antibiotics. Dressing changes daily. Wound culture growing staph aureus with culture/sensitivty noted. Discharge on oral abx x 2 weeks. Discharge with follow up General surgery in 1-2 weeks. Follow up PCP in 1 week of discharge.
--- NOTE | 2018-05-27 07:28 | PN- Student ---
Daphne Farley 05/27/18 0725: Subjective Subjective: Pt has no acute complaints, denies pain. Tolerating normal diet, good appetite. Voiding on own, last BM this morning, ambulating at baseline level (walker). Denies fever, chills, chest pain, SOB, diarrhea. Denies all other ROS. Objective Objective: Vitals: normal and stable I/O: normal Exam: Gen: sitting in recliner in NAD Lungs: CTA BL Cardiac: RRR, no M, R, G Extremities: DP/PT pulses +1 BL, no edema, no tenderness Wound: Dressing has some serum, blood, and pus. Wound appears to be draining pus and serum. Overlying skin is erythematous, warm, indurated. Clean dressing applied. Assessment/Plan Assessment: Pt is a 68 y/o M w/ PMH of HTN, HLD, type 2 diabetes on insulin, sleep apnea, AML, a-fib on Xarelto and CVA presented with with scalp abscess on posterior side of the head for the last 2 weeks. The patient is afebrile and stable. Neuro: pain well controlled Cardiac: xarelto for a-fib Respiratory: normal O2 sat on RA GI: tolerating normal diet : voiding on own Heme: ALPs for DVT prophylaxis Endocrine: Glucose elevated (218) last evening, and has been increased at baseline. Increase insulin detemir to 7U BID. Infectious Disease: vancomycin trough inadequate (5), cultures showed MSSA, consider switching from IV vancomycin to PO cefazolin or bactrim. Wound: dressing changes daily Dispo/other: -Continue wound care for complicated MSSA infection of scalp -Encourage ambulation w/ walker -F/u wound and blood cultures Hang Floyd MD 05/27/18 1049: Attending MD Review Statement Attending Sign Off Other Findings: As per student note. Patient is suitable for discharge home. Daily dry dressing to scalp. Oral antibiotics for total 14 days (IV and po). Follow up with me in office next week.
--- NOTE | 2018-05-27 08:28 | Patient Discharge Instructions ---
Discharge Instructions General Discharge Information You were seen/treated for: Scalp abcess You had these procedures: Incision and drainage Special Instructions: Please follow-up with your primary care physician 1 week Daily DRY dressing F/U GENERAL SURGERY IN 2 WEEKS FATER DISCHarge Diet Recommended Diet: Diabetic Activity Activity Self Limited: Yes Acute Coronary Syndrome Inclusion Criteria At DC or during hospital stay patient has or had the following: ACS DIAGNOSIS No Discharge Core Measures Meds if any: Prescribed or Continued at Discharge Meds if any: NOT Prescribed or Continued at Discharge Congestive Heart Failure Inclusion Criteria At DC or during hospital stay patient has or had the following: CHF DIAGNOSIS No Discharge Core Measures Meds if any: Prescribed or Continued at Discharge Meds if any: NOT Prescribed or Continued at Discharge Cerebrovascular accident Inclusion Criteria At DC or during hospital stay patient has or had the following: CVA/TIA Diagnosis No Discharge Core Measures Meds if any: Prescribed or Continued at Discharge Meds if any: NOT Prescribed or Continued at Discharge Venous thromboembolism Inclusion Criteria VTE Diagnosis No VTE Type NONE VTE Confirmed by (Test) NONE Discharge Core Measures - Per Current guidelines, there needs to be overlap - treatment for the first 5 days of Warfarin therapy. - If discharged on Warfarin prior to 5 days of - overlap therapy, the patient will need to be - assessed for post discharge needs including - *Post discharge parental anticoagulation - *Warfarin and/or parental anticoagulation education - *Follow up date to check INR post discharge At least 5 days overlap therapy as Inpatient No Meds if any: Prescribed or Continued at Discharge Note: Overlap Therapy is Warfarin and Anticoagulant Meds if any: NOT Prescribed or Continued at Discharge
[2018-05-27] MEDS ORDERED: BACTRIM 400-801 EACH PO ×2 (08:59→11:15)
[2018-05-27 09:14] LABS: ABSOLUTE BASOPHIL COUNT 0 /CUMM (0.0-0.2); ABSOLUTE EOSINOPHIL COUNT 0.4 /CUMM (0.0-0.7); ABSOLUTE GRANULOCYTE CT 5.7 /CUMM (1.4-6.5); ABSOLUTE LYMPH COUNT 1.6 /CUMM (1.2-3.4); ABSOLUTE MONOCYTE COUNT 0.4 /CUMM (0.10-0.60); BASOPHIL % 0.3 % (0.0-2.0); EOSINOPHIL % 4.5 % (0-5); GRANULOCYTE % 70.1 % (42.2-75.2); HEMATOCRIT 43.3 % (42-52); MEAN CORPUSCULAR HGB 28.7 PG (27.0-31.0); MEAN CORPUSCULAR HGB CONC 32.7 G/DL (33.0-37.0); MEAN CORPUSCULAR VOLUME 87.6 FL (80.0-94.0); MEAN PLATELET VOLUME 9.5 FL (7.4-10.4); PLATELET COUNT 339 /CUMM (130-400); RBC DISTRIBUTION WIDTH 14.9 % (11.5-14.5); RED BLOOD CELL CT 4.94 /CUMM (4.70-6.10); WHITE BLOOD CELL COUNT 8.1 /CUMM (4.8-10.8)
[2018-05-27 09:20] VITALS: BP 110/74
--- NOTE | 2018-05-27 12:52 | Discharge Summary ---
Visit Information Visit Dates Admission Date: 05/24/18 Discharge Date: 05/27/18 Hospital Course Course Attending Physician: Hema Lopez MD Primary Care Physician: Edna TUBBS,[facility] Course: 60-year-old M with past medical history HTN, HLD, type 2 diabetes on oral hypoglycemic, sleep apnea, AML , A. fib on Xarelto and CVA presented with with scalp abscess on posterior side of the head for the last 2 weeks. Hospital course: At the time of presentation emergency department patient labs and vitals are given below. Vitals: Temperature 97.9, pulse rate 53, respiratory 20, blood pressure 123/74, pulse oximetry 95%, Labs: CVC 12.9, hemoglobin/hematocrit 13.8/40.5, platelet count 331 Sodium 139, potassium 4.5, anion gap 9, bun 24, creatinine 1.4, estimated GFR 50 He was treated for the following problems: 1. Posterior scalp abscess 2. History of hypertension, hyperlipidemia, Type 2 DM, hypothyroid Posterior scalp abscess failure of outpatient antibiotic therapy: Patient having posterior scalp abscess was started developing after haircut. There was a pus discharge. He came to [facility] emergency. Incision and drainage was done. Surgery Dr. Floyd was following. Patient started on IV vancomycin. His leukocytosis trended down. He was discharged on Bactrim for 14 days. Daily dry dressing. The abcess started healing and responded well to IV vancomycin and incision and drainage. Patient is plan to discharge today and will follow up on outpatient basis. 2. Diabetes Mellitus: * In hospital he was on insulin and blood sugar was controlled * After discharge he will continue his home medication * Patient counseled regarding sugar monitoring and diabetic diet along with lifestyle modification 3. Continue home medications for hypertension, hyperlipidemia and hypothyroidism *Patient discharged home today Allergies: Coded Allergies: levofloxacin (Severe, RASH 05/24/18) ciprofloxacin (From [facility]) (HIVES, RASH 05/24/18) hydrocortisone (From [facility]) (HIVES, RASH 05/24/18) Disposition Summary Disposition Principal Diagnosis: Scalp abscess Additional Diagnosis: Hypertension Diabetes A. fib Hyperlipidemia History of AML History of DVT Discharge Disposition: home or self care Discharge Instructions General Discharge Information Code Status: Full Code Patient's Diet: Diabetic diet Patient's Activity: Self-limited Follow-Up Instructions/Appts: Please follow-up with your primary care physician in 1 weeks Please follow-up with surgery in 1 week Daily dry dressing if you need any medical attention please contact your primary care physician Medications at Discharge Discharge Medications: Continue taking these medications: Lactobacillus Acidophilus (Probiotic) (Unknown Strength) CAPSULE Unknown Dose ORAL DAILY Comments: Last Taken:05/27/18 Time:09:00 AM Erythromycin Ethylsuccinate (E.e.s. 400) 400 MG TABLET 1 Tablet ORAL Every other day Comments: DID NOT TAKE IN HOSPITAL [place]-3S/Dha/Epa/Fish Oil (Fish Oil 1,200 MG Softgel) 360-1,200MG CAPSULE 2 Capsule ORAL Every night Comments: DID NOT TAKE IN HOSPITAL Loratadine (Claritin) 10 MG TABLET 1 Tablet ORAL Every Morning Comments: Last Taken:05/27/18 Time:09:20 AM Gabapentin (Gabapentin) 300 MG CAPSULE 1 Capsule ORAL THREE TIMES DAILY Comments: Last Taken:05/27/18 Time:09:30 AM Lisinopril (Lisinopril) 40 MG TABLET 1 Tablet ORAL DAILY Comments: Last Taken:05/27/18 Time:09:30 AM Fenofibrate Nanocrystallized (Fenofibrate) 145 MG TABLET 1 Tablet ORAL TAKE AT BEDTIME Comments: Last Taken:05/26/18 Time:8:00 PM Levothyroxine Sodium (Levothyroxine Sodium) 150 MCG TABLET 1 Tablet ORAL DAILY BEFORE BREAKFAST Comments: Last Taken:05/27/18 Time:05:00 AM Lansoprazole (Lansoprazole) 30 MG CAPSULE.DR 1 Capsule ORAL Every Morning Comments: Last Taken:05/27/18 Time:05:00 AM OMEPRAZOLE USED SUBSTITUTIION Rivaroxaban (Xarelto) 10 MG TABLET 1 Tablet ORAL Every night Comments: Last Taken:05/26/18 Time:8:00 PM Furosemide (Lasix) 20 MG TABLET 1 Tablet ORAL Every Morning Comments: Last Taken:05/27/18 Time:09:00 AM Pravastatin Sodium (Pravastatin Sodium) 40 MG TABLET 1 Tablet ORAL Every night Comments: Last Taken:05/26/18 Time:5:00 PM Amlodipine Besylate (Amlodipine Besylate) 10 MG TABLET 1 Tablet ORAL Every Morning Comments: DID NOT TAKE IN HOSPITAL [FOLNATE PLUS] 1 Tablet ORAL Every Morning Comments: DID NOT TAKE IN HOSPITAL Paroxetine HCl (Paxil) 30 MG TABLET 1 Tablet ORAL TAKE AT BEDTIME Comments: Last Taken:05/26/18 Time:8:00 PM Metformin HCl (Metformin HCl ER) 500 MG TAB.ER.24 1 Tablet ORAL Every Morning Comments: DID NOT TAKE IN HOSPITAL Metformin HCl (Metformin HCl ER) 500 MG TAB.ER.24H 2 Tablet ORAL Every night Comments: DID NOT TAKE IN HOSPITAL Cholecalciferol (Vitamin D3) (Vitamin D) 2,000 UNIT CAPSULE 1 Capsule ORAL Every Morning Comments: Last Taken:05/27/18 Time:09:00 AM Linagliptin (Tradjenta) 5 MG TABLET 1 Tablet ORAL TAKE AT BEDTIME Comments: DID NOT TAKE IN HOSPITAL Acetaminophen (Acetaminophen) 500 MG TABLET 2 Tablet ORAL as needed for PAIN Comments: Last Taken:05/27/18 Time:7:40 PM Start taking the following new medications: Sulfamethoxazole/Trimethoprim (Bactrim 400-80 MG Tablet) 400 MG-80 MG TABLET 1 Tablet ORAL TWICE DAILY Qty = 28 No Refills Comments: DID NOT TAKE IN HOSPITAL Copies To: Dallas Bishop MD
== END 2018-05-27 14:15 | disposition home health service (06) | DRG 603 ==
LOC: ERH 10:37 → 2NA 18:59 → ERHI 18:59 → ENRESERV 20:09 → ENTRNSPT 20:57 → 2NA 21:18 → CMPTRNSPT 21:30 → 2NA 05-27 07:31 → ENPENDDIS 05-27 12:03 → ENTRNSPT 05-27 13:37 → EDTRNSPT 05-27 13:46 → EDTRNSPTSTS 05-27 13:46 → CMPTRNSPT 05-27 14:03 → 2NA 05-27 14:15
PROVIDERS: Hospitalist; Internal Medicine; Physician Assistant Medical
PROC: 0J9 Subcutaneous Tissue and Fascia, Drainage (ICD-10-PCS; principal; 2018-05-24)
DX: L02.811 Cutaneous abscess of head [any part, except face] (principal); C92.91 Myeloid leukemia, unspecified in remission; B95.61 Methicillin susceptible Staphylococcus aureus infection as the cause of diseases classified elsewhere; I48.91 Unspecified atrial fibrillation; Z79.01 Long term (current) use of anticoagulants; R00.1 Bradycardia, unspecified; I10 Essential (primary) hypertension; E11.40 Type 2 diabetes mellitus with diabetic neuropathy, unspecified; Z79.84 Long term (current) use of oral hypoglycemic drugs; E66.9 Obesity, unspecified; Z68.34 Body mass index [BMI] 34.0-34.9, adult; E78.5 Hyperlipidemia, unspecified; G47.33 Obstructive sleep apnea (adult) (pediatric); Z98.1 Arthrodesis status; Z88.1 Allergy status to other antibiotic agents; Z88.8 Allergy status to other drugs, medicaments and biological substances; M19.90 Unspecified osteoarthritis, unspecified site
CPT/HCPCS: 2NASP; 87184; 36415; 36592; 82436; 87070; 87147; J2001; J3370; J3490; J7040